=== PATIENT | female | born 1950 | race Caucasian/White ===

== ENCOUNTER 2017-05-12 09:06 | Day surgery (SDC) | payer OTHER ==
[2017-05-12] MEDS ORDERED: LIDOCAINE HCL 1% MPF SOL ONE (09:42)
[2017-05-12] MEDS ORDERED: PROPOFOL 500 MG/50 ML EMU IV ONE (09:42)
[2017-05-12 11:50] VITALS: BP 132/78; PULSE 53; RESP 20; TEMP 97.2; O2SAT 98
== END 2017-05-12 12:05 | disposition home or self-care (01) | DRG 812 ==
LOC: SURG 09:06
PROVIDERS: ATTEND Surgery
DX: D50.9 Iron deficiency anemia, unspecified (principal); K57.30 Diverticulosis of large intestine without perforation or abscess without bleeding
CPT/HCPCS: J2001; J2704